=== PATIENT | female | born 1975 | race Caucasian/White ===

== ENCOUNTER → 2017-01-08 | Outpatient (CLI) | payer BC ==
[~2017-01-08] VITALS: Ht 170.2 cm; Wt 103.4 kg
[~2017-01-08] MED LIST: AMBIEN 10MG10 MG PO; B-121000 MCG PO; CALCIUM WITH D31 CTB PO; FASTIN30 MG PO; FIORICET 325 MG1 TA1 PO; FLINTSTONES COM1 CT1 PO; GLUCOPHAGE XR500 M1 PO; LEXAPRO 10MG10 MG PO; NORCO 325 MG-51 TAB PO; PRILOSEC 20MG20 MG PO; SUPRENZA15 MG; SYNTHROID0.112 MG/T PO; TROKEND25 PO; VITAMIN D31000 I1 PO; XANAX .25M0.25 MG/TA PO; ZANAFLEX 4MG TAB4 MG PO; ZOFRAN 4MG T4 MG/TAB PO
== END ==
LOC: LIGHT 08:49
DX: R73.01 Impaired fasting glucose (principal); E03.8 Other specified hypothyroidism; E66.09 Other obesity due to excess calories; Z68.34 Body mass index [BMI] 34.0-34.9, adult; M51.36 Other intervertebral disc degeneration, lumbar region

== ENCOUNTER → 2017-02-05 | Outpatient (CLI) | payer BC ==
[~2017-02-05] VITALS: Ht 167.6 cm; Wt 104.6 kg
[2017-02-05 14:42] VITALS: BP 122/51; PULSE 84
== END ==
LOC: LIGHT 14:15
DX: R73.01 Impaired fasting glucose (principal); M51.36 Other intervertebral disc degeneration, lumbar region; E03.8 Other specified hypothyroidism; E66.8 Other obesity; Z68.37 Body mass index [BMI] 37.0-37.9, adult

== ENCOUNTER → 2017-03-10 | Outpatient (CLI) | payer BC | LOC: MHCPAIN 07:54 | DX: G89.29 Other chronic pain (principal); M47.817 Spondylosis without myelopathy or radiculopathy, lumbosacral region; M54.16 Radiculopathy, lumbar region; M53.3 Sacrococcygeal disorders, not elsewhere classified | CPT/HCPCS: G0463; J1100; Q9967 ==

== ENCOUNTER → 2017-03-12 | Outpatient (CLI) | payer BC | LOC: MHCPAIN 11:32 | DX: M47.27 Other spondylosis with radiculopathy, lumbosacral region (principal) | CPT/HCPCS: J1100; Q9967 ==

== ENCOUNTER → 2017-03-12 | Outpatient (CLI) | payer BC ==
[~2017-03-12] VITALS: Ht 167.6 cm; Wt 102.5 kg
[2017-03-12 16:14] VITALS: BP 139/76; PULSE 109
== END ==
LOC: LIGHT 10:35
DX: E11.9 Type 2 diabetes mellitus without complications (principal); E03.8 Other specified hypothyroidism; M51.36 Other intervertebral disc degeneration, lumbar region; E66.8 Other obesity; Z68.36 Body mass index [BMI] 36.0-36.9, adult; Z90.49 Acquired absence of other specified parts of digestive tract

== ENCOUNTER → 2017-03-30 | Outpatient (CLI) | payer BC ==
[~2017-03-30] VITALS: Ht 167.6 cm; Wt 105.0 kg
[2017-03-30 13:18] VITALS: BP 107/50; PULSE 86
== END ==
LOC: LIGHT 13:15
DX: R73.01 Impaired fasting glucose (principal); E03.9 Hypothyroidism, unspecified; E66.9 Obesity, unspecified; Z68.37 Body mass index [BMI] 37.0-37.9, adult; M51.36 Other intervertebral disc degeneration, lumbar region

== ENCOUNTER → 2017-04-08 | Outpatient (CLI) | payer BC | LOC: BHSO 08:55 | DX: Z01.818 Encounter for other preprocedural examination (principal) ==

== ENCOUNTER → 2017-04-13 | Outpatient (CLI) | payer BC | LOC: MHCPAIN 07:51 | DX: G89.29 Other chronic pain (principal); M47.817 Spondylosis without myelopathy or radiculopathy, lumbosacral region; M54.16 Radiculopathy, lumbar region; M53.3 Sacrococcygeal disorders, not elsewhere classified | CPT/HCPCS: G0463 ==

== ENCOUNTER → 2017-04-23 | Outpatient (CLI) | payer BC | LOC: MHCPAIN 11:51 | DX: M47.817 Spondylosis without myelopathy or radiculopathy, lumbosacral region (principal) | CPT/HCPCS: J1040; J1100; Q9967 ==

== ENCOUNTER → 2017-05-13 | Outpatient (CLI) | payer BC | LOC: LIGHT 15:00 | DX: Z02.89 Encounter for other administrative examinations (principal) ==

== ENCOUNTER → 2017-05-22 | Outpatient (CLI) | payer BC | LOC: MHCPAIN 12:37 | DX: Z53.8 Procedure and treatment not carried out for other reasons (principal) ==

== ENCOUNTER 2017-05-25 15:30 | Outpatient (RCR) | payer BC ==
[~2017-05-25 15:30] MED LIST changes: -B-121000 MCG PO; -CALCIUM WITH D31 CTB PO; -FLINTSTONES COM1 CT1 PO; -VITAMIN D31000 I1 PO
[2017-06-08] MEDS ORDERED: FLINTSTONES COM1 CT1 PO (13:47)
[2017-06-08] MEDS ORDERED: CALCIUM WITH D31 CTB PO (13:48)
[2017-06-08] MEDS ORDERED: VITAMIN D31000 I1 PO (13:48)
[2017-06-08] MEDS ORDERED: B-121000 MCG PO (13:49)
== END 2017-06-02 | disposition home or self-care (01) ==
LOC: WSPT
DX: M54.5 Low back pain (principal)
CPT/HCPCS: G0283-GP

== ENCOUNTER → 2017-05-25 | Outpatient (CLI) | payer BC | LOC: LIGHT 11:25 | DX: E66.8 Other obesity (principal); E11.9 Type 2 diabetes mellitus without complications ==

== ENCOUNTER 2017-05-27 06:59 | Day surgery (SDC) | payer BC ==
[~2017-05-27] VITALS: Ht 167.6 cm; Wt 99.7 kg
[2017-05-27] VITALS (12 sets, daily range): BP systolic 105–1436; BP diastolic 54–85; PULSE 70–107; TEMP 97.7–98.1
[2017-05-28 02:00] VITALS: BP 138/80; PULSE 81; TEMP 97.9
[2017-05-28 05:28] VITALS: BP 134/81; PULSE 74; TEMP 98.2
[2017-05-28 09:26] VITALS: BP 142/71; PULSE 62; TEMP 98.1
[2017-05-28 13:19] VITALS: BP 127/73; PULSE 66; TEMP 97.3
[2017-06-08] MEDS ORDERED: FLINTSTONES COM1 CT1 PO (13:47)
[2017-06-08] MEDS ORDERED: CALCIUM WITH D31 CTB PO (13:48)
[2017-06-08] MEDS ORDERED: VITAMIN D31000 I1 PO (13:48)
[2017-06-08] MEDS ORDERED: B-121000 MCG PO (13:49)
== END 2017-05-28 17:00 | disposition home or self-care (01) ==
LOC: SDCO 06:59 → SURG 12:55 → SDCO 05-28 17:00
DX: E66.01 Morbid (severe) obesity due to excess calories (principal); F32.9 Major depressive disorder, single episode, unspecified; K21.9 Gastro-esophageal reflux disease without esophagitis; E03.9 Hypothyroidism, unspecified; F41.9 Anxiety disorder, unspecified; K76.0 Fatty (change of) liver, not elsewhere classified; E11.9 Type 2 diabetes mellitus without complications; Z90.49 Acquired absence of other specified parts of digestive tract; Z87.891 Personal history of nicotine dependence; Z68.37 Body mass index [BMI] 37.0-37.9, adult
CPT/HCPCS: OP; A9284; J1100; J1170; J2175; J2405; J2550; J2704; J2710; J2765; J3010; J7030; Q9968

== ENCOUNTER → 2017-06-08 | Outpatient (CLI) | payer BC ==
[~2017-06-08] VITALS: Ht 167.6 cm; Wt 96.2 kg
[~2017-06-08] MED LIST changes: +B-121000 MCG PO; +CALCIUM WITH D31 CTB PO; +FLINTSTONES COM1 CT1 PO; +VITAMIN D31000 I1 PO
[2017-06-08 13:51] VITALS: BP 92/46; PULSE 82
== END ==
LOC: LIGHT 08:35
DX: R73.01 Impaired fasting glucose (principal); E03.9 Hypothyroidism, unspecified; E66.9 Obesity, unspecified; Z68.34 Body mass index [BMI] 34.0-34.9, adult; Z71.3 Dietary counseling and surveillance; M51.36 Other intervertebral disc degeneration, lumbar region

== ENCOUNTER → 2017-07-06 | Outpatient (CLI) | payer BC ==
[~2017-07-06] VITALS: Ht 167.6 cm; Wt 92.8 kg
[2017-07-06 16:16] VITALS: BP 104/76
[2017-07-13 14:54] VITALS: BP 106/80; PULSE 72
== END ==
LOC: LIGHT 15:26
DX: R73.01 Impaired fasting glucose (principal); E03.9 Hypothyroidism, unspecified; E66.9 Obesity, unspecified; Z68.33 Body mass index [BMI] 33.0-33.9, adult; Z71.3 Dietary counseling and surveillance; M51.36 Other intervertebral disc degeneration, lumbar region

== ENCOUNTER → 2017-07-13 | Outpatient (CLI) | payer BC | LOC: BHSO 14:03 | DX: F41.1 Generalized anxiety disorder (principal) ==

== ENCOUNTER → 2017-07-31 | Outpatient (CLI) | payer BC | LOC: BHSO 09:47 | DX: F41.1 Generalized anxiety disorder (principal) ==

== ENCOUNTER → 2017-08-17 | Outpatient (CLI) | payer BC ==
[~2017-08-17] VITALS: Ht 167.6 cm; Wt 90.5 kg
[2017-08-17 16:40] VITALS: BP 100/72; PULSE 68
== END ==
LOC: LIGHT 10:50
DX: R73.01 Impaired fasting glucose (principal); E03.9 Hypothyroidism, unspecified; E66.9 Obesity, unspecified; Z68.32 Body mass index [BMI] 32.0-32.9, adult; Z71.3 Dietary counseling and surveillance; M51.36 Other intervertebral disc degeneration, lumbar region

== ENCOUNTER → 2017-09-09 | Outpatient (CLI) | payer BC | LOC: BHSO 15:41 | DX: F41.1 Generalized anxiety disorder (principal) ==

== ENCOUNTER → 2017-11-09 | Outpatient (CLI) | payer BC ==
[~2017-11-09] VITALS: Ht 167.6 cm; Wt 88.9 kg
[2017-11-09 16:06] VITALS: BP 100/78; PULSE 68
== END ==
LOC: LIGHT 09:01
DX: R73.01 Impaired fasting glucose (principal); E03.9 Hypothyroidism, unspecified; E66.9 Obesity, unspecified; Z68.31 Body mass index [BMI] 31.0-31.9, adult; Z71.3 Dietary counseling and surveillance; M51.36 Other intervertebral disc degeneration, lumbar region

== ENCOUNTER → 2018-01-27 | Outpatient (CLI) | payer BC | LOC: MC.RAD 08:38 | DX: Z12.31 Encounter for screening mammogram for malignant neoplasm of breast (principal) ==

== ENCOUNTER → 2019-05-17 | Outpatient (CLI) | payer BC | LOC: MC.RAD 16:34 | DX: Z12.31 Encounter for screening mammogram for malignant neoplasm of breast (principal); N63.10 Unspecified lump in the right breast, unspecified quadrant ==

== ENCOUNTER → 2019-05-20 | Outpatient (CLI) | payer BC | LOC: MC.RAD 07:52 | DX: N63.10 Unspecified lump in the right breast, unspecified quadrant (principal) | CPT/HCPCS: G0279 ==

== ENCOUNTER → 2019-07-04 | Outpatient (CLI) | payer BC ==
[~2019-07-04] VITALS: Ht 167.6 cm; Wt 86.6 kg
[~2019-07-04] MED LIST changes: -SYNTHROID0.112 MG/T PO; +SYNTHROID0.125 MG/T PO
[2019-07-04 16:01] VITALS: BP 120/64; PULSE 72
== END ==
LOC: LIGHT 13:41
DX: R73.01 Impaired fasting glucose (principal); E03.9 Hypothyroidism, unspecified; Z98.84 Bariatric surgery status; E66.9 Obesity, unspecified; Z68.30 Body mass index [BMI] 30.0-30.9, adult; Z71.3 Dietary counseling and surveillance
CPT/HCPCS: G0463

== ENCOUNTER → 2019-09-12 | Outpatient (CLI) | payer BC ==
[~2019-09-12] VITALS: Ht 167.6 cm; Wt 88.0 kg
[2019-09-12 13:43] VITALS: BP 126/76; PULSE 72
== END ==
LOC: LIGHT 13:00
DX: R73.01 Impaired fasting glucose (principal); E03.9 Hypothyroidism, unspecified; Z98.84 Bariatric surgery status; E66.9 Obesity, unspecified; Z68.31 Body mass index [BMI] 31.0-31.9, adult; Z71.3 Dietary counseling and surveillance
CPT/HCPCS: G0463

== ENCOUNTER → 2019-09-14 | Outpatient (CLI) | payer BC | LOC: BHSO 12:57 | DX: F41.1 Generalized anxiety disorder (principal) ==

== ENCOUNTER → 2019-10-10 | Outpatient (CLI) | payer BC | LOC: BHSO 13:35 | DX: F41.1 Generalized anxiety disorder (principal) ==

== ENCOUNTER → 2019-11-14 | Outpatient (CLI) | payer BC | LOC: MC.RAD 08:42 | DX: N63.10 Unspecified lump in the right breast, unspecified quadrant (principal); Z98.890 Other specified postprocedural states | CPT/HCPCS: G0279 ==

== ENCOUNTER → 2019-12-05 | Outpatient (CLI) | payer BC ==
[~2019-12-05] MED LIST changes: +PHENTERMINE15 MG PO
== END ==
LOC: BHSO 13:53
DX: F41.1 Generalized anxiety disorder (principal)

== ENCOUNTER → 2020-01-02 | Outpatient (CLI) | payer BC | LOC: BHSO 13:51 | DX: F41.1 Generalized anxiety disorder (principal) ==

== ENCOUNTER → 2020-02-03 | Outpatient (CLI) | payer BC | LOC: BHSO 13:46 | DX: F41.1 Generalized anxiety disorder (principal) ==

== ENCOUNTER → 2020-03-09 | Outpatient (CLI) | payer BC | LOC: BHSO 13:45 | DX: F41.1 Generalized anxiety disorder (principal) ==

== ENCOUNTER → 2020-04-30 | Outpatient (CLI) | payer BC | LOC: BHSO 10:46 | DX: F41.1 Generalized anxiety disorder (principal) | CPT/HCPCS: G0463 ==

== ENCOUNTER → 2020-05-09 | Outpatient (CLI) | payer BC | LOC: BHSO 10:56 | DX: F41.1 Generalized anxiety disorder (principal) ==

== ENCOUNTER → 2020-05-18 | Outpatient (CLI) | payer BC | LOC: MC.RAD 06:53 | DX: Z12.31 Encounter for screening mammogram for malignant neoplasm of breast (principal) ==

== ENCOUNTER → 2020-05-28 | Outpatient (CLI) | payer BC | LOC: BHSO 08:56 | DX: F33.41 Major depressive disorder, recurrent, in partial remission (principal) | CPT/HCPCS: G0463 ==

== ENCOUNTER → 2020-06-19 | Outpatient (CLI) | payer BC | LOC: BHSO 09:00 | DX: F41.1 Generalized anxiety disorder (principal) ==

== ENCOUNTER → 2020-07-31 | Outpatient (CLI) | payer BC | LOC: BHSO 08:54 | DX: F41.1 Generalized anxiety disorder (principal) ==

== ENCOUNTER → 2020-08-29 | Outpatient (CLI) | payer BC | LOC: BHSO 08:05 | DX: F33.41 Major depressive disorder, recurrent, in partial remission (principal) | CPT/HCPCS: G0463 ==

== ENCOUNTER 2021-02-20 05:41 | Observation (INO) | payer BC ==
[2021-02-20] VITALS (10 sets, daily range): BP systolic 100–131; BP diastolic 49–74; PULSE 81–99; TEMP 98.1–99
[~2021-02-20] VITALS: Ht 167.6 cm; Wt 90.9 kg
[2021-02-20 06:06] LABS: BASO # 0.1 (0.0-0.2); BASO % 0.3 % (0.0-2.0); EOS % 0.1 % (0-4.0); GRAN # 15.1 (1.4-6.5); GRAN % 87.6 % (42.2-75.2); HEMOGLOBIN 15.1 g/dl (12.5-16.0); LYMPH # 1.2 (1.2-3.4); LYMPH % 6.7 % (20.0-51.0); MEAN CELL VOLUME 91 fl (80.0-100.0); MEAN CORPUSCULAR HEMOGLOBIN 31 pg (27.0-31.0); MEAN CORPUSCULAR HGB CONC 34 g/dl (33.0-37.0); MEAN PLATELET VOLUME 8.8 fl (7.4-10.4); MONO # 0.9 (0.1-0.6); MONO % 4.9 % (1.7-9.3); PLATELET COUNT 252 K/mm3 (130-400); RED BLOOD COUNT 4.85 M/mm3 (4.10-5.30); REDCELL DISTRIBUTION WIDTH-CV 12.7 % (11.5-14.5)
[2021-02-20 06:19] LABS: ALBUMIN 4.4 gm/dL (3.5-5.0); BILIRUBIN,TOTAL 0.6 mg/dL (0.0-1.0); C-REACTIVE PROTEIN 0.7 mg/dL (0.0-0.9); CALCIUM 9.2 mg/dL (8.4-10.2); CREATININE, serum 0.85 (0.52-1.25); POTASSIUM 3.8 mmol/L (3.4-5.0); TOTAL PROTEIN 8.4 gm/dL (6.4-8.2)
[2021-02-20] MEDS ORDERED: DESYREL 50MG50 MG PO (08:12)
[2021-02-20] MEDS ORDERED: PRISTIQ 50 MG T50 MG PO (08:12)
--- NOTE | 2021-02-20 12:39 | NUR ---
Patient to surgery with surgical staff at 1145.
--- NOTE | 2021-02-20 14:08 | NUR ---
Patient returns from appendectomy at this time. Assessment unchanged except lap sites x3 to abdomen with edges well approximated, no redness or drainage noted. Post op exercises reviewed with patient. No c/o at this time.
[2021-02-21 04:17] VITALS: BP 98/50; PULSE 76; TEMP 98.3
--- NOTE | 2021-02-21 05:36 | NUR ---
Patient had minimal complaints throughout the shift. Pain controlled with PRN norco. Patient getting up independently in room. 3 lap sites edges well approximated.
[2021-02-21 07:33] VITALS: BP 105/60; PULSE 78; TEMP 98.2
--- NOTE | 2021-02-21 09:26 | NUR ---
MATTHIEU met with the patient to discuss discharge plan. The patient lives in [place] with her , Yousuf (ph#[phone]). She reports independence with ADLs and does not have any DME. The patient's PCP is Dr. Tello Tam and [facility] She reports no difficulties obtaining her meds. The patient does not have a DPOA-HC in EMR, but she states that she does have one completed and that it designates her . The patient plans to return home with her upon discharge. No additional needs at this time.
[2021-02-21 12:08] VITALS: BP 112/62; PULSE 66; TEMP 98.2
--- NOTE | 2021-02-21 12:59 | NUR ---
AGREE WITH STUDENT'S ASSESSMENTS. PT AMBULATING INDEPENDENTLY IN HALLS.
[2021-02-21 16:08] VITALS: BP 110/56; PULSE 78; TEMP 97.9
--- NOTE | 2021-02-21 17:48 | NUR ---
REVIEWED DISCHARGE INSTRUCTIONS WITH PATIENT AND . QUESTIONS SOLICITED AND ANSWERED. PT LEFT FLOOR AMBULATORY WITH STAFF.
== END 2021-02-21 17:30 | disposition home or self-care (01) ==
LOC: COL.ER 05:41 → JCC 07:34
PROVIDERS: Emergency Medicine; ADMIT Surgery
DX: K35.80 Unspecified acute appendicitis (principal); K21.9 Gastro-esophageal reflux disease without esophagitis; E03.9 Hypothyroidism, unspecified; F41.9 Anxiety disorder, unspecified; Z90.3 Acquired absence of stomach [part of]; Z79.899 Other long term (current) drug therapy; Z90.89 Acquired absence of other organs; Z79.891 Long term (current) use of opiate analgesic; Z79.890 Hormone replacement therapy; Z87.891 Personal history of nicotine dependence
CPT/HCPCS: A9284; G0378; J1100; J1170; J1885; J2250; J2405; J2543; J2704; J3010; J7030; J7120; Q9967

== ENCOUNTER 2021-04-18 10:36 | Outpatient (RCR) | payer BC ==
[~2021-04-18 10:36] MED LIST changes: +DESYREL 50MG50 MG PO; +PRISTIQ 50 MG T50 MG PO
== END 2021-05-13 08:32 | disposition home or self-care (01) ==
LOC: PT.GENESIS 10:36
DX: Z01.818 Encounter for other preprocedural examination (principal); M25.562 Pain in left knee

== ENCOUNTER → 2021-05-23 | Outpatient (CLI) | payer BC | LOC: MC.RAD 14:06 | DX: Z12.31 Encounter for screening mammogram for malignant neoplasm of breast (principal); Z98.890 Other specified postprocedural states ==

== ENCOUNTER 2021-07-05 15:15 | Outpatient (RCR) | payer BC | END 2021-07-10 09:36 | disposition home or self-care (01) | LOC: PT.GENESIS 15:15 | DX: M25.562 Pain in left knee (principal) ==

== ENCOUNTER 2022-02-24 13:50 | Outpatient (RCR) | payer BC | END 2022-02-27 | disposition still patient (30) | LOC: PT.GENESIS | DX: M25.562 Pain in left knee (principal) ==

== ENCOUNTER 2022-03-17 14:30 | Outpatient (RCR) | payer BC | END 2022-03-29 | disposition home or self-care (01) | LOC: PT.GENESIS | DX: M25.562 Pain in left knee (principal) ==

== ENCOUNTER 2022-05-28 15:30 | Outpatient (RCR) | payer BC | END 2022-05-29 | disposition home or self-care (01) | LOC: PT.GENESIS | DX: M22.2X2 Patellofemoral disorders, left knee (principal) ==

== ENCOUNTER 2022-06-23 15:15 | Outpatient (RCR) | payer BC | END 2022-06-29 | disposition home or self-care (01) | LOC: PT.GENESIS | DX: M25.562 Pain in left knee (principal) ==

== ENCOUNTER 2022-07-29 08:00 | Outpatient (RCR) | payer BC | END 2022-07-29 15:30 | disposition still patient (30) | LOC: PT.GENESIS 08:00 | DX: M51.36 Other intervertebral disc degeneration, lumbar region (principal); M22.2X2 Patellofemoral disorders, left knee ==

== ENCOUNTER → 2023-09-17 | Outpatient (CLI) | payer BC | LOC: MHCPAIN 14:42 | DX: M54.50 Low back pain, unspecified (principal); M53.3 Sacrococcygeal disorders, not elsewhere classified; M51.36 Other intervertebral disc degeneration, lumbar region; M25.851 Other specified joint disorders, right hip; M25.852 Other specified joint disorders, left hip; Q76.49 Other congenital malformations of spine, not associated with scoliosis | CPT/HCPCS: G0463 ==

== ENCOUNTER → 2023-11-18 | Outpatient (CLI) | payer BC | LOC: MHCPAIN 09:48 | DX: M79.18 Myalgia, other site (principal); M53.3 Sacrococcygeal disorders, not elsewhere classified; M54.31 Sciatica, right side | CPT/HCPCS: J3301 ==

== ENCOUNTER 2023-12-04 07:41 | Emergency (ER) | payer BC ==
[~2023-12-04] VITALS: Ht 167.6 cm; Wt 77.7 kg
[2023-12-04 07:49] VITALS: TEMP 98
[2023-12-04 08:29] LABS: HEMATOCRIT 49.3 % (37.0-47.0); HEMOGLOBIN 17.1 g/dl (12.5-16.0); MEAN CELL VOLUME 91 fl (80.0-100.0); MEAN CORPUSCULAR HEMOGLOBIN 31 pg (27-31); MEAN CORPUSCULAR HGB CONC 35 g/dl (33.0-37.0); MEAN PLATELET VOLUME 9.2 fl (7.4-10.4); PLATELET COUNT 278 K/mm3 (130-400); RED BLOOD COUNT 5.45 M/mm3 (4.10-5.30); REDCELL DISTRIBUTION WIDTH-CV 12.8 % (11.5-14.5)
[2023-12-04 08:40] LABS: ALANINE AMINOTRANSFERASE 11 U/L (0-55); ALBUMIN 4.1 gm/dL (3.5-5.0); ALKALINE PHOSPHATASE 66 U/L (40-150); ANION GAP 13 mmol/L (7-16); AST,SGOT 14 U/L (5-34); BILIRUBIN,TOTAL 1.1 mg/dL (0.2-1.2); BLOOD UREA NITROGEN 12 mg/dL (7-19); CALCIUM 9.8 mg/dL (8.4-10.2); CARBON DIOXIDE 15 mmol/L (22-29); CHLORIDE 110 mmol/L (98-107); CREATININE, serum 0.89 mg/dL (0.57-1.11); GLUCOSE 171 mg/dL (70-99); LIPASE 26 U/L (8-78); POTASSIUM 3.6 mmol/L (3.5-4.5); SODIUM 138 mmol/L (136-145); TOTAL PROTEIN 8.2 gm/dL (6.2-8.1)
[2023-12-04 08:43] LABS: BAND 9 % (0-10); BASOPHIL 1 % (0-2); LYMPHOCYTE 3 % (20.0-51.0); NEUTROPHILS 86 % (42.0-75.2); PLATELET ESTIMATE NORMAL (NORMAL)
[2023-12-04 08:56] LABS: TROPONIN-I < 0.010 ng/mL (0.00-0.033)
[2023-12-04 09:49] LABS: COLLECTION METHOD CLEAN CATCH
[2023-12-04 09:50] LABS: PH 6.5 (5.0-8.5); URINE APPEARANCE Clear (CLEAR/HAZY); URINE BLOOD 3+ (NEGATIVE); URINE COLOR Yellow (YELLOW); URINE GLUCOSE Negative (NEGATIVE); URINE KETONE 3+ (NEGATIVE); URINE NITRATE Negative (NEGATIVE); URINE PROTEIN(semi-quant) Negative (NEGATIVE); URINE UROBILINOGEN 0.2 E.U/dL (0.2-1.0); URINE WBC 0-2 /hpf (0-2)
[2023-12-04 09:51] LABS: URINE BACTERIA Rare /hpf (NONE SEEN)
[2023-12-04] MEDS ORDERED: ZOFRAN ODT4 MG PO (11:30)
[2023-12-04 12:00] VITALS: BP 102/68; PULSE 103
== END 2023-12-04 12:00 | disposition home or self-care (01) ==
LOC: COL.ER 07:41
PROVIDERS: Emergency Medicine
DX: R11.2 Nausea with vomiting, unspecified (principal); R00.0 Tachycardia, unspecified; R10.84 Generalized abdominal pain
CPT/HCPCS: J2405; J7120; Q9967

== ENCOUNTER → 2023-12-24 | Outpatient (CLI) | payer BC ==
[~2023-12-24] MED LIST changes: +ZOFRAN ODT4 MG PO
== END ==
LOC: MHCPAIN 13:21
DX: M25.551 Pain in right hip (principal); M25.852 Other specified joint disorders, left hip; M25.851 Other specified joint disorders, right hip; M54.31 Sciatica, right side; M53.3 Sacrococcygeal disorders, not elsewhere classified; M54.50 Low back pain, unspecified
CPT/HCPCS: G0463

== ENCOUNTER 2023-12-28 16:00 | Outpatient (RCR) | payer BC | END 2023-12-30 | disposition home or self-care (01) | LOC: PT.GENESIS | DX: M53.3 Sacrococcygeal disorders, not elsewhere classified (principal); M51.36 Other intervertebral disc degeneration, lumbar region ==

== ENCOUNTER → 2023-12-28 | Outpatient (CLI) | payer BC | LOC: COL.RAD 14:01 | DX: R11.0 Nausea (principal) ==

== ENCOUNTER 2024-01-20 15:15 | Outpatient (RCR) | payer BC | END 2024-01-28 | disposition home or self-care (01) | LOC: PT.GENESIS | DX: M53.3 Sacrococcygeal disorders, not elsewhere classified (principal); M25.851 Other specified joint disorders, right hip ==

== ENCOUNTER → 2024-02-04 | Outpatient (CLI) | payer BC | LOC: MHCPAIN 14:47 | DX: M54.50 Low back pain, unspecified (principal); M51.36 Other intervertebral disc degeneration, lumbar region; M25.551 Pain in right hip; M25.851 Other specified joint disorders, right hip; M25.852 Other specified joint disorders, left hip | CPT/HCPCS: G0463 ==

== ENCOUNTER → 2024-02-18 | Outpatient (CLI) | payer BC ==
[~2024-02-18] MED LIST changes: +Iohexol 300 - 10 ML VIAL ONE; +Lidocaine PF 2% (20 MG/ML) 2 ML VIAL ONE
== END ==
LOC: MHCPAIN 10:25
DX: M54.16 Radiculopathy, lumbar region (principal)
CPT/HCPCS: J1100; Q9967

== ENCOUNTER → 2024-03-07 | Outpatient (CLI) | payer BC ==
[~2024-03-07] MED LIST changes: -Iohexol 300 - 10 ML VIAL ONE; -Lidocaine PF 2% (20 MG/ML) 2 ML VIAL ONE
== END ==
LOC: MHCPAIN 13:47
DX: M54.50 Low back pain, unspecified (principal); M51.36 Other intervertebral disc degeneration, lumbar region; M25.551 Pain in right hip; M25.851 Other specified joint disorders, right hip; M25.852 Other specified joint disorders, left hip
CPT/HCPCS: G0463

== ENCOUNTER → 2024-03-14 | Outpatient (CLI) | payer BC ==
[~2024-03-14] MED LIST changes: +Iohexol 300 - 10 ML VIAL ONE; +Lidocaine PF 1% (10 MG/ML) 5 ML VIAL ONE; +Triamcinolone 40 MG/ML 1 ML VIAL ONE
== END ==
LOC: MHCPAIN 14:14
DX: M25.551 Pain in right hip (principal); M25.851 Other specified joint disorders, right hip
CPT/HCPCS: J3301; Q9967

== ENCOUNTER → 2024-05-20 | Outpatient (CLI) | payer BC ==
[~2024-05-20] MED LIST changes: -Iohexol 300 - 10 ML VIAL ONE; -Lidocaine PF 1% (10 MG/ML) 5 ML VIAL ONE; -Triamcinolone 40 MG/ML 1 ML VIAL ONE
== END ==
LOC: MC.RAD 13:34
DX: Z12.31 Encounter for screening mammogram for malignant neoplasm of breast (principal)

== ENCOUNTER 2024-09-27 11:00 | Outpatient (RCR) | payer BC | END 2024-09-29 | LOC: PT.GENESIS | DX: M25.511 Pain in right shoulder (principal) ==